=== PATIENT | female | born 1975 | race Caucasian/White ===

== ENCOUNTER → 2018-03-18 | Day surgery (SDC) | payer OTHER ==
[~2018-03-18] VITALS: Ht 175.3 cm; Wt 81.2 kg
[~2018-03-18] MED LIST: APRI 28 DAY TA1 EACH PO; L-LYSINE500 M3 PO; ULTRAM(MONOGRAP50 MG PO; VITAMIN D1000 UNIT PO
--- NOTE | 2018-03-18 10:35 | Operative Report ---
Operative/Inv Procedure Report Surgery Date: 03/18/18 Name of Procedure: Left breast biopsy with wire localization Pre-Operative Diagnosis: Left breast microcalcifications Post-Operative Diagnosis: Same Estimated Blood Loss: scant Surgeon/Bus Matron: Hellen Fuchs MD Anesthesia: local monitored anesthesi Specimens: Left breast biopsy Operative/Procedure Note Note: Patient had a mammogram showing suspicious microcalcifications. Stereotactic biopsy was attempted and unsuccessful. She is brought to the operating room for excisional biopsy. She is brought to the operating room placed under anesthesia. 2 g of Ancef was given. Left breast was prepped and draped in a sterile fashion using ChloraPrep. Local anesthesia of quarter percent Marcaine mixed with 1% lidocaine was given. An incision was made in the inframammary fold laterally. The tissue was dissected and the wire was brought into the incision. The area of concern was grasped using an Allis clamp and dissected. The specimen was removed and marked for orientation using margin map. Intraoperative x-ray confirmed the presence of the calcifications in specimen. Hemostasis was adequate. Deep tissue was approximated using interrupted Vicryl sutures and the skin was closed using a running Biosyn subcuticular stitch. Steri-Strips and sterile dressings were applied and the patient is transferred to the recovery room in satisfactory condition having tolerated the procedure well.
--- NOTE | 2018-03-18 12:52 | MAMMOGRAPHY REPORT ---
PROCEDURE: MM GUIDANCE FOR BREAST PREOPERATIVE NEEDLE LOCALIZATION, LEFT SPECIMEN RADIOGRAPHY CLINICAL INFORMATION: 42-year-old female, clinically known to have 2 clusters of microcalcifications, one at upper outer quadrant at anterior depth and the 2nd at lower outer quadrant at posterior depth. Attempted stereotactic biopsy of the posterior group of calcifications was unsuccessful on 03/11/2018. Stereotactic core biopsy of the 2nd cluster of microcalcifications seen at upper outer quadrant at anterior depth was not attempted since the patient preferred to have both groups of calcifications surgically removed. Mammographic guided needle localization of both groups of calcifications is requested. COMPARISON: Prior studies done on 03/11/2018, 02/12/2018 and 03/13/2017. TECHNIQUE/FINDINGS: The details of the procedure, as well as the risks, benefits, and alternatives to the procedure were explained to the patient in detail and all of her questions were answered, after which, written informed consent was obtained. Prior to the procedure, left-sided standard CC and ML views were obtained. A time-out was performed, the targeted clusters of calcifications intended for needle localization were targeted and the skin of the left breast was then prepped and draped in the usual sterile fashion. Using mammographic guidance, sterile technique and buffered 2% lidocaine mixed with sodium bicarbonate without epinephrine for local anesthesia, a 5 cm Kopans needle-wire was placed at the site of the solitary cluster of microcalcifications seen at lower outer quadrant of the left breast at posterior depth. Using similar technique, the 2nd cluster of microcalcifications seen at upper outer quadrant at anterior depth adjacent to the skin was also localized using lateral medial approach. However, on the CC projection, the 2nd cluster of calcifications seen at upper outer quadrant at anterior depth adjacent to the skin was localized within the skin surface. Accordingly, the localization needle containing the wire was removed and no localization was performed. The patient tolerated the procedure well. There are scattered areas of fibroglandular density (ACR BI-RADS breast composition category B).* The worksheet was appropriately labeled and was sent to the operating room with the patient. Subsequently, following excision of the mass, specimen radiography was performed which revealed intact wire and the targeted calcifications. IMPRESSION: 1. Successful mammographic-guided needle localization of the left breast indeterminate calcifications at lower outer quadrant at posterior depth. 2. The 2nd cluster of microcalcifications seen at upper outer quadrant at anterior depth is localized to the skin and accordingly, no localization was performed. This was discussed in detail with Dr. Fuchs over the phone prior to sending the patient to the operating room. 3. Final specimen radiograph confirming removal of the indexed calcifications and intact wire combination. Results were called to Dr. Fuchs in the operating room at the time of imaging. The histology report is pending.
== END ==
LOC: STS 01:16 → CBW.IIU 07:00 → CBW.MAMMO 08:00
DX: D05.12 Intraductal carcinoma in situ of left breast (principal)
CPT/HCPCS: 81025; J0131; J0690; J1100; J2001; J2250; J2405

== ENCOUNTER → 2018-03-29 | Day surgery (SDC) | payer OTHER ==
[~2018-03-29] VITALS: Ht 175.3 cm; Wt 84.4 kg
--- NOTE | 2018-03-29 10:33 | Operative Report ---
Operative/Inv Procedure Report Surgery Date: 03/29/18 Name of Procedure: Left partial mastectomy Pre-Operative Diagnosis: Left breast DCIS Post-Operative Diagnosis: Same Estimated Blood Loss: scant Surgeon/Dial Buffer: Hellen Fuchs MD Anesthesia: laryngeal mask airway Specimens: Cranial margin, caudal margin, medial margin, lateral margin, deep margin Operative/Procedure Note Note: Patient is status post an excisional biopsy of the left breast. Pathology showed ductal carcinoma in situ. She was brought to the operating room for reexcision of the margins and formal partial mastectomy. She is brought to the operating room and given Keflex 2 g. ChloraPrep was used to prep and drape the left breast. Local anesthesia 1% lidocaine mixed half percent Marcaine was given in the previous inframammary incision was opened. The lumpectomy cavity was identified and margins were taken to encompass the entire lumpectomy cavity in the cranial, caudal, medial, lateral, skin and deep positions. The deep portion of the wound was pectoralis muscle. Hemostasis was achieved using electrocautery. Hemoclips were used to milagro the margins of the lumpectomy. Deep tissue was approximated using interrupted Vicryl sutures and the skin was closed using a running Biosyn subcuticular stitch. Steri-Strips and sterile dressings were applied and patient was transferred to the recovery room in satisfactory condition having tolerated the procedure well.
== END ==
LOC: STS 02:04
DX: D05.12 Intraductal carcinoma in situ of left breast (principal); J45.909 Unspecified asthma, uncomplicated
CPT/HCPCS: 81025; 88305; J0690; J2001; J2250